=== PATIENT | male | born 1960 | race Two or more races ===

== ENCOUNTER 2024-02-10 06:47 | Day surgery (SDC) | payer OTHER ==
[~2024-02-10 06:47] MED LIST: NABUMETONE500 MG PO; PERCOCET 5/3251 TAB PO; TRICOR145 MG PO; TRIUMEQ TABLET1 EACH PO; [UNRECOGNIZED DRUG - OTHER] PO
[2024-02-10] MEDS ORDERED: DIPHENHYDRAMINE HCL 50 MG/ML VIAL 1ML IV ONE (10:45)
[2024-02-10] MEDS ORDERED: MIDAZOLAM HCL 2 MG/2 ML VIAL IV ONE (10:45)
[2024-02-10] MEDS ORDERED: fentaNYL CITRATE 50 MCG/ML AMPUL IV PUSH ONE (10:45)
== END 2024-02-10 12:05 | disposition home or self-care (01) ==
LOC: AMB-ENDOS 06:47
PROVIDERS: ATTEND Colon & Rectal Surgery
DX: K62.1 Rectal polyp (principal); K63.5 Polyp of colon; K57.30 Diverticulosis of large intestine without perforation or abscess without bleeding